=== PATIENT | female | born 1965 | race Caucasian/White ===

== ENCOUNTER 2023-11-19 07:58 | Outpatient (RCR) | payer BC, SELFPAY ==
[2023-10-29 08:49] VITALS: BP 121/64
[2023-10-29] MEDS: CALCIUM GLUCONATE 1028 GRAMS IV (08:51)
[2023-10-29] MEDS: CALCIUM GLUCONATE 1028 MG IV (08:51)
[2023-11-05 08:52] VITALS: BP 93/58
[2023-11-05] MEDS: CALCIUM GLUCONATE 1028 MG IV (08:58)
[2023-11-05] MEDS: CALCIUM GLUCONATE 1028 GRAMS IV (08:58)
[2023-11-12 08:30] VITALS: BP 95/54
[2023-11-12] MEDS: CALCIUM GLUCONATE 1028 GRAMS IV (08:45)
[2023-11-12] MEDS: CALCIUM GLUCONATE 1028 MG IV (08:45)
[2023-11-19 08:29] VITALS: BP 101/63
[2023-11-19] MEDS: CALCIUM GLUCONATE 1028 GRAMS IV (08:51)
[2023-11-19] MEDS: CALCIUM GLUCONATE 1028 MG IV (08:51)
== END 2023-11-20 11:23 | disposition home or self-care (01) ==
LOC: OID 07:58
PROVIDERS: ATTENDING PHYSICIAN Specialist; FAMILY PHYSICIAN Family Medicine
DX: E86.0 Dehydration (principal); N18.5 Chronic kidney disease, stage 5; E83.51 Hypocalcemia; D50.8 Other iron deficiency anemias; N18.30 Chronic kidney disease, stage 3 unspecified
CPT/HCPCS: 96365; 96366

== ENCOUNTER 2023-12-17 07:36 | Outpatient (RCR) | payer BC, SELFPAY ==
[2023-11-26 08:37] VITALS: BP 119/74
[2023-11-26] MEDS: CALCIUM GLUCONATE 1028 GRAMS IV (08:48)
[2023-11-26] MEDS: CALCIUM GLUCONATE 1028 MG IV (08:48)
[2023-12-03 08:34] VITALS: BP 102/59
[2023-12-03] MEDS: CALCIUM GLUCONATE 1028 GRAMS IV (08:48)
[2023-12-03] MEDS: CALCIUM GLUCONATE 1028 MG IV (08:48)
[2023-12-10 08:10] VITALS: BP 109/63
[2023-12-10] MEDS: CALCIUM GLUCONATE 1028 MG IV (08:20)
[2023-12-10] MEDS: CALCIUM GLUCONATE 1028 GRAMS IV (08:20)
[2023-12-17] MEDS: CALCIUM GLUCONATE 1028 GRAMS IV (08:16)
[2023-12-17] MEDS: CALCIUM GLUCONATE 1028 MG IV (08:16)
[2023-12-17 08:19] VITALS: BP 112/60
== END 2023-12-17 13:54 | disposition home or self-care (01) ==
LOC: OID 07:36
PROVIDERS: ATTENDING PHYSICIAN Specialist; FAMILY PHYSICIAN Family Medicine
DX: E86.0 Dehydration (principal); N18.5 Chronic kidney disease, stage 5; E83.51 Hypocalcemia; D50.8 Other iron deficiency anemias; N18.30 Chronic kidney disease, stage 3 unspecified
CPT/HCPCS: 96365; 96366

== ENCOUNTER 2024-01-07 08:14 | Outpatient (RCR) | payer BC, SELFPAY ==
[2023-12-24 08:38] VITALS: BP 120/64
[2023-12-24] MEDS: CALCIUM GLUCONATE 1028 MG IV (08:52)
[2023-12-24] MEDS: CALCIUM GLUCONATE 1028 GRAMS IV (08:52)
[2024-01-07 08:50] VITALS: BP 110/65
[2024-01-07] MEDS: CALCIUM GLUCONATE 1028 GRAMS IV (08:52)
[2024-01-07] MEDS: CALCIUM GLUCONATE 1028 MG IV (08:52)
== END 2024-01-16 13:15 | disposition home or self-care (01) ==
LOC: OID 08:14
PROVIDERS: ATTENDING PHYSICIAN Specialist; FAMILY PHYSICIAN Family Medicine
DX: N18.5 Chronic kidney disease, stage 5; E86.0 Dehydration; E83.51 Hypocalcemia; D50.8 Other iron deficiency anemias; E87.1 Hypo-osmolality and hyponatremia
CPT/HCPCS: 96365; 96366

== ENCOUNTER 2024-02-11 11:11 | Outpatient (RCR) | payer BC, SELFPAY ==
[2024-01-21 08:47] VITALS: BP 114/66
[2024-01-21] MEDS: CALCIUM GLUCONATE 1028 MG IV (08:50)
[2024-01-21] MEDS: CALCIUM GLUCONATE 1028 GRAMS IV (08:50)
[2024-02-04] MEDS: CALCIUM GLUCONATE 1046 MG IV (08:36)
[2024-02-04] MEDS: CALCIUM GLUCONATE 1046 GRAMS IV (08:36)
[2024-02-04 08:53] VITALS: BP 116/62
[2024-02-11 11:47] VITALS: BP 112/66
[2024-02-11] MEDS: CALCIUM GLUCONATE 1046 GRAMS IV (12:19)
[2024-02-11] MEDS: CALCIUM GLUCONATE 1046 MG IV (12:19)
== END 2024-02-18 09:30 | disposition home or self-care (01) ==
LOC: OID 11:11
PROVIDERS: ATTENDING PHYSICIAN Specialist; FAMILY PHYSICIAN Family Medicine
DX: N18.5 Chronic kidney disease, stage 5 (principal); E86.0 Dehydration; E83.51 Hypocalcemia; E87.1 Hypo-osmolality and hyponatremia; D50.8 Other iron deficiency anemias
CPT/HCPCS: 96365; 96366

== ENCOUNTER 2024-03-10 08:08 | Outpatient (RCR) | payer BC, SELFPAY ==
[2024-02-25 08:39] VITALS: BP 107/65
[2024-02-25] MEDS: CALCIUM GLUCONATE 1046 MG IV (08:52)
[2024-02-25] MEDS: CALCIUM GLUCONATE 1046 GRAMS IV (08:52)
[2024-03-10 08:30] VITALS: BP 107/59
[2024-03-10] MEDS: CALCIUM GLUCONATE 1046 MG IV (08:42)
[2024-03-10] MEDS: CALCIUM GLUCONATE 1046 GRAMS IV (08:42)
== END 2024-03-21 23:59 | disposition home or self-care (01) ==
LOC: OID 08:08
PROVIDERS: ATTENDING PHYSICIAN Specialist; FAMILY PHYSICIAN Family Medicine
DX: N18.5 Chronic kidney disease, stage 5 (principal); E86.0 Dehydration; E83.51 Hypocalcemia; D50.8 Other iron deficiency anemias; E87.1 Hypo-osmolality and hyponatremia
CPT/HCPCS: 96365; 96366

== ENCOUNTER 2024-04-14 10:11 | Emergency (ER) | payer BC, SELFPAY ==
[2024-04-14] VITALS (19 sets, daily range): BP systolic 92–122; BP diastolic 53–68
[2024-04-14 10:59] LABS: ALT (SGPT) 10 U/L (0-35); AST (SGOT) 26 U/L (14-36); Albumin 3.6 g/dl (3.5-5.0); Alkaline Phosphatase 92 U/L (38-126); Blood Urea Nitrogen 42 mg/dl (7-17); Calcium 8.1 mg/dl (8.4-10.2); Carbon Dioxide 34 mmol/L (22-30); Chloride 95 mmol/L (98-107); Glucose 107 mg/dl (70-99); Potassium 3.7 mmol/L (3.5-5.1); Sodium 136 mmol/L (135-145); Total Bilirubin 0.9 mg/dl (0.2-1.3); Total Protein 6.9 g/dl (6.3-8.2); eGFR 17.37
--- NOTE | 2024-04-14 11:07 | ED.GENMED ---
History of Present Illness
General
Chief Complaint: Abnormal Lab Value
Source: patient
Exam Limitations: none
Time Seen by Provider: 04/14/24 10:45
Nursing documentation reviewed up to this point in time: agreed with
History of Present Illness
History of Present Illness:
pt is a 58 y/o F with h/o crohns s/p ileostomy with internal pouch, malabsorptions, chrnoic anemia, electrolyte disturbances
here with hg of 5.3 on outpatient labs
she has had previous transfusions, but with caution after having hemolytic transfusion reaction and has had consequence of CKD since, with cr of 3-4
pt is scared to get transfused
she was sent here for transfusion and d/c home
she is sscheduled for iron infusion next week at [facility]
pt has fatigue but otherwise no sypmtoms, no bleeding, no dark stool, no vomiting, no cp, sob.
normal hg is 8
Past History
Past History
ED Past Medical History: Other (Crohn's disease, anemia, CKD, recurrent UTI)
ED Past Surgical History: Bowel resection and Other (Partial colectomy, ileostomy with internal pouch)
Social History
Tobacco: Non-smoker
Alcohol: None
Drug: None
Personal:
Living: with family
Employment: Employed
Family History
Family History: Other (Noncontributory)
Review of Systems
Review of Systems
Allergies reviewed?: Yes
All Other Systems: Not applicable
Phy Exam
Physical Exam
Physical Exam:
GENERAL: Alert , in no apparent distress, pale
EYE: pupils equal and reactive, pale
NECK: Supple
ENT: o/p clr, mmm.
CARDIAC: Regular rate and rhythm .no longer tachy
LUNGS: Clear breath sounds bilaterally, no acute respiratory distress, no wheezes/rales/rhonchi
ABDOMEN: Soft, without focal tenderness, no r/g, no cvat, normal bowel sounds
previous abd incisions, healed
NEUROLOGICAL: Alert and oriented, no focal neuro deficits
SKIN: Warm and dry, skin intact.
MUSCULOSKELETAL: No edema, well perfused. neg osiris's sign
PSYCH: Normal and appropriate interaction.
Course
Orders/Labs/Results
Orders:
Orders
04/14/24 10:19
Electrocardiogram (*1) Urgent
Reason for Study: Fatigue / Weakness
EKG- Treatment ONCE
04/14/24 10:28
Type+Screen Urgent
Complete Blood Count/With Diff Urgent
Comprehensive Metabolic Panel Urgent
04/14/24 11:30
* Blood Bank Products Urgent
Blood Bank Products: *Packed RBC Leuko(PRBC's)
Quantity: 2
Transfuse Today: Yes
Reason: Anemia
Patient will require pre-treatment for transfusion:: Yes
04/14/24 11:34
Acetaminophen [Tylenol] 650 mg PO NOW STA
Diphenhydramine [Benadryl] 25 mg IV NOW STA
04/14/24 17:49
Acetaminophen [Tylenol Suspension] 650 mg PO NOW STA
Abnormal Lab Results
04/14/24
10:28
RBC 2.71 L 10^6/uL
(4.20-5.40)
Hgb 5.3 L* g/dL
(12.0-16.0)
Hct 17.9 L* %
(37.0-47.0)
MCV 66.1 L fL
(81.0-99.0)
MCH 19.6 L pg
(27.0-31.0)
MCHC 29.6 L g/dL
(33.0-37.0)
RDW 16.2 H %
(11.5-14.5)
Plt Count 455 H 10^3/uL
(130-400)
Absolute Lymphs (auto) 0.9 L 10^3/uL
(1.2-3.4)
Absolute Monos (auto) 0.7 H 10^3/uL
(0.1-0.6)
Lymphocytes % 13.0 L %
(20.5-51.1)
Monocytes % 9.9 H %
(1.7-9.3)
Chloride 95 L mmol/L
(98-107)
Carbon Dioxide 34 H mmol/L
(22-30)
BUN 42 H mg/dl
(7-17)
Creatinine 3.0 H mg/dL
(0.6-1.0)
Glucose 107 H mg/dl
(70-99)
Calcium 8.1 L mg/dl
(8.4-10.2)
Antibody Screen Positive A
(Negative)
Crossmatch IS Only See Detail
MTS Gel Crossmatch See Detail
04/14/24 10:28
04/14/24 10:28
Vital Signs
Initial and Last Documented VS:
Initial Vital Signs
Temp Pulse Resp BP Pulse Ox
98.2 F 109 18 122/68 100
04/14/24 10:14 04/14/24 10:14 04/14/24 10:14 04/14/24 10:14 04/14/24 10:14
Last Documented Vital Signs
Temp Pulse Resp BP Pulse Ox
97.9 F 66 18 117/69 97
04/15/24 00:27 04/15/24 00:27 04/15/24 00:27 04/15/24 00:27 04/15/24 00:27
MDM/Problems Addressed
Differential Diagnosis Includes:
anemia
MDM/Problems Addressed:
58 y/o F with h/o malabsorption crohns and iron def causing anemia
here with outpatient labs saying hg is 5
pt is minimally symptomatic with fatigue
baseline hg is 8
no bleeding
sent here for blood transufion
unfortunately has had previous hemolytic transfusion reaction and subsequent kidney failure
not requiring dialysis
but pt hesitant about transfusion
she did consent
i spoke with dr. hyman regarding number of units, he recommended 2 and that pt be pretreated with tylenol/benadryl
pt had delay in blood that had to come from [facility] due to antibodies
will have her units and d/c home
*Critical Care Note
Total Time (30-74mins, 75-104mins- exclusive of procedures): Not Applicable
ED Attending Note
-
Portions of this chart may have been created with voice recognition software.� Occasional wrong word or��sound alike� substitutions may have occurred due to the inherent limitations of voice recognition software.
Discharge Plan
Departure
Patient Disposition: Home (Routine Discharge)
Patient with high blood pressure during this ER visit?: No
Condition: Good
Discharge Problem:
Anemia
Instructions: Anemia caused by low iron in adults - Discharge instructions
Prescriptions:
No Action
mirtazapine 15 MG tablet
30 mg PO HS
fluoxetine 20 mg Tablet
20 mg PO DAILY
loperamide [Imodium] 2 mg Capsule
2 mg PO DAILY
calcium carbonate [Tums] 200 mg calcium (500 mg) Tablet,Chewable
200 mg PO QID
vitamin D3-vitamin K2 (MK4) 1,000-100 unit-mcg Tablet
6,000 tab PO DAILY
Skyrizi 180 mg/1.2 mL (150 mg/mL) Wearable Injector
180 mg SC .[id number]
Referrals:
Francisca Gandara DO [Family Provider] -
Activity Restrictions/Additional Instructions:
You were given 2 units of blood today. Follow-up with your match up person next week as planned for your iron infusion. Return for any concerns
Interventions
Interventions:
*Risk Screen - Suicide Last Done: 04/14/24 12:15
*General Assessment Last Done: 04/14/24 12:15
*Neglect/Abuse Screening Last Done: 04/14/24 12:15
ED- Fall Risk Assessment Last Done: 04/14/24 21:45
*ED COVID-19 Vaccine History Last Done: 04/14/24 12:15
*Nursing Disposition Last Done: 04/15/24 00:34
Discharge Date and Time
Discharge Date/Time: 04/15/24 00:38
Print Language: HUNGARIAN
[2024-04-14 11:41] LABS: Red Blood Cell Count 2.71 10^6/uL (4.20-5.40)
[2024-04-14 11:42] LABS: Mean Corp Hgb Conc. 29.6 g/dL (33.0-37.0); Mean Corpuscular Hgb 19.6 pg (27.0-31.0)
[2024-04-14 11:43] LABS: Mean Corpuscular Volume 66.1 fL (81.0-99.0); Mean Platelet Volume 8.7 fL (7.4-10.4); Platelet Count 455 10^3/uL (130-400); Red Cell Dist. Width 16.2 % (11.5-14.5)
[2024-04-14 11:44] LABS: % Basophils 0.7 % (0-2); % Eosinophils 3.4 % (0-6); % Immature Granulocytes 0.4 % (0-0.5); % Monocytes 9.9 % (1.7-9.3); % Neutrophils 72.6 % (42.2-75.2)
[2024-04-14 11:45] LABS: Absolute Eosinophils 0.2 10^3/uL (0-0.7); Absolute Lymphocytes 0.9 10^3/uL (1.2-3.4); Absolute Monocytes 0.7 10^3/uL (0.1-0.6); Absolute Neutrophils 5.1 10^3/uL (1.4-6.5)
[2024-04-14 11:46] LABS: Absolute Basophils 0.1 10^3/uL (0-0.2)
[2024-04-14 11:47] LABS: Hemoglobin 5.3 g/dL (12.0-16.0); Nucleated Red Blood Cells % 0 %
[2024-04-14 11:48] LABS: Hematocrit 17.9 % (37.0-47.0)
[2024-04-14 13:26] LABS: Normal RBC Morphology No
[2024-04-14 13:27] LABS: Anisocytosis Slight; Macrocytosis Slight
[2024-04-14 13:29] LABS: Ovalocytes FEW; Target Cells FEW
[2024-04-14] MEDS: BENADRYL 25 MG IV (17:53)
[2024-04-14] MEDS: TYLENOL SUSPENSION 650 MG PO (17:54)
--- NOTE | 2024-04-14 21:30 | EDRN ---
This RN took over care for pt. When I took over care of pt, first unit of blood is done but has not been completed in [facility].
[2024-04-15] VITALS: BP 114/66
[2024-04-15 00:21] VITALS: BP 117/69
[2024-04-15 00:24] VITALS: BP 117/69
[2024-04-15 00:27] VITALS: BP 117/69
== END 2024-04-15 00:38 | disposition home or self-care (01) ==
LOC: EMR 10:11
PROVIDERS: Emergency Medicine; EMERGENCY PHYSICIAN Emergency Medicine; FAMILY PHYSICIAN Family Medicine
DX: D64.9 Anemia, unspecified (principal); K50.90 Crohn's disease, unspecified, without complications; N18.9 Chronic kidney disease, unspecified; Z87.440 Personal history of urinary (tract) infections; Z93.2 Ileostomy status
CPT/HCPCS: 99283; 96374; 80053; 85025; 86850; 86870; 86900; 86901; 86920; 86922; 93005; P9016

== ENCOUNTER 2024-04-21 08:18 | Outpatient (RCR) | payer BC, SELFPAY ==
[2024-03-29] MEDS: CALCIUM GLUCONATE 1046 GRAMS IV (08:17)
[2024-03-29] MEDS: CALCIUM GLUCONATE 1046 MG IV (08:17)
[2024-03-29 08:23] VITALS: BP 95/52
[2024-04-07 08:33] VITALS: BP 110/63
[2024-04-07] MEDS: CALCIUM GLUCONATE 1046 MG IV (08:49)
[2024-04-07] MEDS: CALCIUM GLUCONATE 1046 GRAMS IV (08:49)
[2024-04-21 08:44] VITALS: BP 132/70
[2024-04-21] MEDS: CALCIUM GLUCONATE 1046 MG IV (09:06)
[2024-04-21] MEDS: CALCIUM GLUCONATE 1046 GRAMS IV (09:06)
== END 2024-04-21 23:59 | disposition home or self-care (01) ==
LOC: OID 08:18
PROVIDERS: ATTENDING PHYSICIAN Specialist; FAMILY PHYSICIAN Family Medicine
DX: N18.5 Chronic kidney disease, stage 5 (principal); E86.0 Dehydration; E83.51 Hypocalcemia; D50.8 Other iron deficiency anemias; E87.1 Hypo-osmolality and hyponatremia
CPT/HCPCS: 96365; 96366

== ENCOUNTER 2024-05-19 08:23 | Outpatient (RCR) | payer BC, SELFPAY ==
[2024-05-06] MEDS: CALCIUM GLUCONATE 1046 GRAMS IV (09:05)
[2024-05-06] MEDS: CALCIUM GLUCONATE 1046 MG IV (09:05)
[2024-05-06 09:11] VITALS: BP 117/59
[2024-05-19 08:40] VITALS: BP 105/68
[2024-05-19] MEDS: CALCIUM GLUCONATE 1046 MG IV (08:54)
[2024-05-19] MEDS: CALCIUM GLUCONATE 1046 GRAMS IV (08:54)
== END 2024-05-20 09:56 | disposition home or self-care (01) ==
LOC: OID 08:23
PROVIDERS: ATTENDING PHYSICIAN Specialist; FAMILY PHYSICIAN Family Medicine
DX: N18.5 Chronic kidney disease, stage 5 (principal); E86.0 Dehydration; D63.1 Anemia in chronic kidney disease; D50.8 Other iron deficiency anemias; E83.51 Hypocalcemia; E87.1 Hypo-osmolality and hyponatremia
CPT/HCPCS: 96365; 96366

== ENCOUNTER 2024-06-16 07:59 | Outpatient (RCR) | payer BC, SELFPAY ==
[2024-06-16 08:13] VITALS: BP 122/78
[2024-06-16] MEDS: CALCIUM GLUCONATE 1046 GRAMS IV (08:26)
[2024-06-16] MEDS: CALCIUM GLUCONATE 1046 MG IV (08:26)
== END 2024-06-17 09:24 | disposition home or self-care (01) ==
LOC: OID 07:59
PROVIDERS: ATTENDING PHYSICIAN Specialist; FAMILY PHYSICIAN Family Medicine
DX: N18.5 Chronic kidney disease, stage 5 (principal); E86.0 Dehydration; E83.51 Hypocalcemia; D50.8 Other iron deficiency anemias; E87.1 Hypo-osmolality and hyponatremia
CPT/HCPCS: 96365; 96366

== ENCOUNTER 2024-07-07 08:01 | Outpatient (RCR) | payer BC, SELFPAY ==
[2024-07-07 08:49] VITALS: BP 118/60
[2024-07-07] MEDS: CALCIUM GLUCONATE 1046 MG IV (08:59)
[2024-07-07] MEDS: CALCIUM GLUCONATE 1046 GRAMS IV (08:59)
== END 2024-07-08 09:40 | disposition home or self-care (01) ==
LOC: OID 08:01
PROVIDERS: ATTENDING PHYSICIAN Specialist; FAMILY PHYSICIAN Family Medicine
DX: N18.5 Chronic kidney disease, stage 5 (principal); E86.0 Dehydration; E83.51 Hypocalcemia; D50.8 Other iron deficiency anemias; E87.1 Hypo-osmolality and hyponatremia
CPT/HCPCS: 96365; 96366

== ENCOUNTER 2024-08-18 07:43 | Outpatient (RCR) | payer BC, SELFPAY ==
[2024-07-28] MEDS: CALCIUM GLUCONATE 1046 MG IV (08:46)
[2024-07-28] MEDS: CALCIUM GLUCONATE 1046 GRAMS IV (08:46)
[2024-07-28 08:54] VITALS: BP 107/68
[2024-08-18] MEDS: CALCIUM GLUCONATE 1046 MG IV (08:09)
[2024-08-18] MEDS: CALCIUM GLUCONATE 1046 GRAMS IV (08:09)
[2024-08-18 08:16] VITALS: BP 108/66
[2024-08-18 11:14] VITALS: BP 103/60
== END 2024-08-20 08:12 | disposition home or self-care (01) ==
LOC: OID 07:43
PROVIDERS: ATTENDING PHYSICIAN Specialist; FAMILY PHYSICIAN Family Medicine
DX: N18.5 Chronic kidney disease, stage 5 (principal); E86.0 Dehydration; E83.51 Hypocalcemia; D50.8 Other iron deficiency anemias; E87.1 Hypo-osmolality and hyponatremia
CPT/HCPCS: 96365; 96366

== ENCOUNTER 2024-09-08 08:00 | Outpatient (RCR) | payer BC, SELFPAY ==
[2024-09-08] MEDS: CALCIUM GLUCONATE 1046 GRAMS IV (08:50)
[2024-09-08] MEDS: CALCIUM GLUCONATE 1046 MG IV (08:50)
[2024-09-08 08:58] VITALS: BP 116/65
== END 2024-09-09 11:14 | disposition home or self-care (01) ==
LOC: OID 08:00
PROVIDERS: ATTENDING PHYSICIAN Specialist; FAMILY PHYSICIAN Family Medicine
DX: N18.5 Chronic kidney disease, stage 5 (principal); E86.0 Dehydration; E83.51 Hypocalcemia; D50.8 Other iron deficiency anemias; E87.1 Hypo-osmolality and hyponatremia
CPT/HCPCS: 96365; 96366

== ENCOUNTER 2024-10-20 07:57 | Outpatient (RCR) | payer BC, SELFPAY ==
[2024-10-20] MEDS: CALCIUM GLUCONATE 1046 MG IV (08:27)
[2024-10-20] MEDS: CALCIUM GLUCONATE 1046 GRAMS IV (08:27)
[2024-10-20 08:37] VITALS: BP 116/58
== END 2024-10-22 23:59 | disposition home or self-care (01) ==
LOC: OID 07:57
PROVIDERS: ATTENDING PHYSICIAN Specialist; FAMILY PHYSICIAN Family Medicine
DX: N18.5 Chronic kidney disease, stage 5 (principal); E86.0 Dehydration; E83.51 Hypocalcemia; D50.8 Other iron deficiency anemias; E87.1 Hypo-osmolality and hyponatremia
CPT/HCPCS: 96365; 96366

== ENCOUNTER 2024-11-10 07:55 | Outpatient (RCR) | payer BC, SELFPAY ==
[2024-11-10 08:10] VITALS: BP 116/70
[2024-11-10] MEDS: CALCIUM GLUCONATE 1046 GRAMS IV (08:21)
[2024-11-10] MEDS: CALCIUM GLUCONATE 1046 MG IV (08:21)
== END 2024-11-11 10:44 | disposition home or self-care (01) ==
LOC: OID 07:55
PROVIDERS: ATTENDING PHYSICIAN Specialist; FAMILY PHYSICIAN Family Medicine
DX: N18.5 Chronic kidney disease, stage 5 (principal); E86.0 Dehydration; E83.51 Hypocalcemia; D50.8 Other iron deficiency anemias; E87.1 Hypo-osmolality and hyponatremia
CPT/HCPCS: 96365; 96366

== ENCOUNTER 2024-12-01 08:07 | Outpatient (RCR) | payer BC, SELFPAY ==
[2024-12-01 08:40] VITALS: BP 110/62
[2024-12-01] MEDS: CALCIUM GLUCONATE 1046 MG IV (08:55)
[2024-12-01] MEDS: CALCIUM GLUCONATE 1046 GRAMS IV (08:55)
== END 2024-12-02 10:25 | disposition home or self-care (01) ==
LOC: OID 08:07
PROVIDERS: ATTENDING PHYSICIAN Specialist; FAMILY PHYSICIAN Family Medicine
DX: N18.5 Chronic kidney disease, stage 5 (principal); E86.0 Dehydration; E83.51 Hypocalcemia; D50.8 Other iron deficiency anemias; E87.1 Hypo-osmolality and hyponatremia
CPT/HCPCS: 96365; 96366

== ENCOUNTER 2025-01-12 08:05 | Outpatient (RCR) | payer BC, SELFPAY ==
[2024-12-22 08:32] VITALS: BP 98/65
[2024-12-22] MEDS: CALCIUM GLUCONATE 1046 MG IV (08:47)
[2024-12-22] MEDS: CALCIUM GLUCONATE 1046 GRAMS IV (08:47)
[2025-01-12 08:40] VITALS: BP 105/62
[2025-01-12] MEDS: CALCIUM GLUCONATE 1046 GRAMS IV (09:11)
[2025-01-12] MEDS: CALCIUM GLUCONATE 1046 MG IV (09:11)
== END 2025-01-13 08:24 | disposition home or self-care (01) ==
LOC: OID 08:05
PROVIDERS: ATTENDING PHYSICIAN Specialist; FAMILY PHYSICIAN Family Medicine
DX: N18.5 Chronic kidney disease, stage 5 (principal); E86.0 Dehydration; E83.51 Hypocalcemia; D50.8 Other iron deficiency anemias; E87.1 Hypo-osmolality and hyponatremia
CPT/HCPCS: 96365; 96366

== ENCOUNTER 2025-02-02 08:07 | Outpatient (RCR) | payer BC, SELFPAY ==
[2025-02-02] MEDS: CALCIUM GLUCONATE 1046 MG IV (08:48)
[2025-02-02] MEDS: CALCIUM GLUCONATE 1046 GRAMS IV (08:48)
[2025-02-02 09:57] VITALS: BP 97/61
== END 2025-02-03 08:30 | disposition home or self-care (01) ==
LOC: OID 08:07
PROVIDERS: ATTENDING PHYSICIAN Specialist; FAMILY PHYSICIAN Family Medicine
DX: E86.0 Dehydration (principal); N18.5 Chronic kidney disease, stage 5; E83.51 Hypocalcemia; D50.8 Other iron deficiency anemias; E87.1 Hypo-osmolality and hyponatremia
CPT/HCPCS: 96365; 96366

== ENCOUNTER 2025-03-16 08:10 | Outpatient (RCR) | payer BC, SELFPAY ==
[2025-02-23 08:43] VITALS: BP 94/58
[2025-02-23] MEDS: CALCIUM GLUCONATE 1046 GRAMS IV (08:54)
[2025-02-23] MEDS: CALCIUM GLUCONATE 1046 MG IV (08:54)
[2025-03-16 08:47] VITALS: BP 94/55
[2025-03-16] MEDS: CALCIUM GLUCONATE 1046 MG IV (09:03)
[2025-03-16] MEDS: CALCIUM GLUCONATE 1046 GRAMS IV (09:03)
== END 2025-03-17 09:22 | disposition home or self-care (01) ==
LOC: OID 08:10
PROVIDERS: ATTENDING PHYSICIAN Specialist; FAMILY PHYSICIAN Family Medicine
DX: N18.5 Chronic kidney disease, stage 5 (principal); E86.0 Dehydration; E83.51 Hypocalcemia; D50.8 Other iron deficiency anemias; E87.1 Hypo-osmolality and hyponatremia
CPT/HCPCS: 96365; 96366

== ENCOUNTER 2025-04-06 08:18 | Outpatient (RCR) | payer BC, SELFPAY ==
[2025-04-06] MEDS: CALCIUM GLUCONATE 1046 MG IV (08:58)
[2025-04-06] MEDS: CALCIUM GLUCONATE 1046 GRAMS IV (08:58)
[2025-04-06 09:04] VITALS: BP 103/61
== END 2025-04-07 08:56 | disposition home or self-care (01) ==
LOC: OID 08:18
PROVIDERS: ATTENDING PHYSICIAN Specialist; FAMILY PHYSICIAN Family Medicine
DX: N18.5 Chronic kidney disease, stage 5 (principal); E86.0 Dehydration; E83.51 Hypocalcemia; D50.8 Other iron deficiency anemias; E87.1 Hypo-osmolality and hyponatremia
CPT/HCPCS: 96365; 96366

== ENCOUNTER 2025-05-18 07:56 | Outpatient (RCR) | payer BC, SELFPAY ==
[2025-04-27 08:36] VITALS: BP 95/59
[2025-04-27] MEDS: CALCIUM GLUCONATE 1046 MG IV (08:51)
[2025-04-27] MEDS: CALCIUM GLUCONATE 1046 GRAMS IV (08:51)
[2025-05-18 08:20] VITALS: BP 86/53
[2025-05-18] MEDS: CALCIUM GLUCONATE 1046 MG IV (08:30)
[2025-05-18] MEDS: CALCIUM GLUCONATE 1046 GRAMS IV (08:30)
[2025-05-18 10:45] VITALS: BP 92/50
== END 2025-05-19 08:38 | disposition home or self-care (01) ==
LOC: OID 07:56
PROVIDERS: ATTENDING PHYSICIAN Specialist; FAMILY PHYSICIAN Family Medicine
DX: N18.5 Chronic kidney disease, stage 5 (principal); E86.0 Dehydration; E83.51 Hypocalcemia; D50.8 Other iron deficiency anemias; E87.1 Hypo-osmolality and hyponatremia
CPT/HCPCS: 96365; 96366; 96367

== ENCOUNTER 2025-06-15 07:46 | Outpatient (RCR) | payer BC, SELFPAY ==
[2025-05-31 10:04] VITALS: BP 84/53
[2025-05-31] MEDS: CALCIUM GLUCONATE 1022 GRAMS IV (10:14)
[2025-05-31] MEDS: CALCIUM GLUCONATE 1022 MG IV (10:14)
[2025-06-08] MEDS: CALCIUM GLUCONATE 1022 MG IV (08:48)
[2025-06-08] MEDS: CALCIUM GLUCONATE 1022 GRAMS IV (08:48)
[2025-06-08 08:54] VITALS: BP 96/53
[2025-06-15 07:58] VITALS: BP 82/49
[2025-06-15] MEDS: CALCIUM GLUCONATE 1022 MG IV (08:10)
[2025-06-15] MEDS: CALCIUM GLUCONATE 1022 GRAMS IV (08:10)
== END 2025-06-16 08:21 | disposition home or self-care (01) ==
LOC: OID 07:46
PROVIDERS: ATTENDING PHYSICIAN Specialist; FAMILY PHYSICIAN Family Medicine
DX: N18.5 Chronic kidney disease, stage 5 (principal); E86.0 Dehydration; D50.8 Other iron deficiency anemias; E83.51 Hypocalcemia; E87.1 Hypo-osmolality and hyponatremia
CPT/HCPCS: 96365; 96366

== ENCOUNTER 2025-07-22 08:13 | Outpatient (RCR) | payer BC, SELFPAY ==
[2025-06-22] MEDS: CALCIUM GLUCONATE 1022 MG IV (08:03)
[2025-06-22] MEDS: CALCIUM GLUCONATE 1022 GRAMS IV (08:03)
[2025-06-22 08:09] VITALS: BP 86/49
[2025-06-22 08:13] LABS: Hematocrit 33.3 % (37.0-47.0); Hemoglobin 11.0 g/dL (12.0-16.0); Mean Corp Hgb Conc. 33.0 g/dL (33.0-37.0); Mean Corpuscular Volume 87.2 fL (81.0-99.0); Platelet Count 340 10^3/uL (130-400); Red Cell Dist. Width 12.9 % (11.5-14.5)
[2025-06-22 11:24] VITALS: BP 86/53
[2025-06-29 07:55] VITALS: BP 103/54
[2025-06-29] MEDS: CALCIUM GLUCONATE 1022 MG IV ×2 (08:05→11:06)
[2025-06-29] MEDS: CALCIUM GLUCONATE 1022 GRAMS IV ×2 (08:05→11:06)
[2025-07-06 07:50] VITALS: BP 81/60
[2025-07-06] MEDS: CALCIUM GLUCONATE 1022 GRAMS IV (08:02)
[2025-07-06] MEDS: CALCIUM GLUCONATE 1022 MG IV (08:02)
[2025-07-08 08:01] VITALS: BP 105/63
[2025-07-08] MEDS: CALCIUM GLUCONATE 1022 MG IV (08:19)
[2025-07-08] MEDS: CALCIUM GLUCONATE 1022 GRAMS IV (08:19)
[2025-07-08 09:58] LABS: Albumin 3.1 g/dl (3.5-5.0); Blood Urea Nitrogen 64 mg/dl (7-17); Calcium 8.0 mg/dl (8.4-10.2); Carbon Dioxide 19 mmol/L (22-30); Chloride 102 mmol/L (98-107); Glucose 92 mg/dl (70-99); Magnesium 1.8 mg/dl (1.6-2.3); Potassium 4.0 mmol/L (3.5-5.1); Sodium 132 mmol/L (135-145); eGFR 7.08
[2025-07-13 07:50] VITALS: BP 80/49
[2025-07-13] MEDS: CALCIUM GLUCONATE 1022 GRAMS IV (08:01)
[2025-07-13] MEDS: CALCIUM GLUCONATE 1022 MG IV (08:01)
[2025-07-15 08:08] VITALS: BP 90/54
[2025-07-15] MEDS: CALCIUM GLUCONATE 1022 GRAMS IV (08:10)
[2025-07-15] MEDS: CALCIUM GLUCONATE 1022 MG IV (08:10)
[2025-07-18 08:36] VITALS: BP 86/49
[2025-07-18] MEDS: CALCIUM GLUCONATE 1022 MG IV (08:50)
[2025-07-18] MEDS: CALCIUM GLUCONATE 1022 GRAMS IV (08:50)
[2025-07-18 12:10] VITALS: BP 86/48
[2025-07-20] MEDS: CALCIUM GLUCONATE 1022 GRAMS IV (08:05)
[2025-07-20] MEDS: CALCIUM GLUCONATE 1022 MG IV (08:05)
[2025-07-20 08:10] VITALS: BP 87/52
[2025-07-22] MEDS: CALCIUM GLUCONATE 1022 GRAMS IV (08:42)
[2025-07-22] MEDS: CALCIUM GLUCONATE 1022 MG IV (08:42)
[2025-07-22 08:44] VITALS: BP 89/49
[2025-07-22 11:45] VITALS: BP 91/48
== END 2025-07-22 14:17 | disposition home or self-care (01) ==
LOC: OID 08:13
PROVIDERS: Internal Medicine Hematology & Oncology; ATTENDING PHYSICIAN Specialist; FAMILY PHYSICIAN Family Medicine
DX: N18.5 Chronic kidney disease, stage 5 (principal); E86.0 Dehydration; E83.51 Hypocalcemia; D50.8 Other iron deficiency anemias; E87.1 Hypo-osmolality and hyponatremia
CPT/HCPCS: 36415; 80069; 82570; 83735; 84300; 85025; 96360; 96361; 96365; 96366

== ENCOUNTER 2025-08-19 07:38 | Outpatient (RCR) | payer BC, SELFPAY ==
[2025-07-25] MEDS: CALCIUM GLUCONATE 1022 GRAMS IV (08:34)
[2025-07-25] MEDS: CALCIUM GLUCONATE 1022 MG IV (08:34)
[2025-07-25 08:47] VITALS: BP 81/46
[2025-07-27 07:50] VITALS: BP 83/53
[2025-07-27] MEDS: CALCIUM GLUCONATE 1022 MG IV (08:07)
[2025-07-27] MEDS: CALCIUM GLUCONATE 1022 GRAMS IV (08:07)
[2025-07-27 08:20] LABS: Hematocrit 28.3 % (37.0-47.0); Hemoglobin 9.2 g/dL (12.0-16.0); Mean Corp Hgb Conc. 32.5 g/dL (33.0-37.0); Mean Corpuscular Volume 90.7 fL (81.0-99.0); Platelet Count 374 10^3/uL (130-400); Red Cell Dist. Width 15.0 % (11.5-14.5)
[2025-07-27 09:14] LABS: Iron 30 ug/dl (37-170)
[2025-07-27 09:18] LABS: C-Reactive Protein 29.40 mg/L (0.0-10.00)
[2025-07-27 09:23] LABS: Total Iron Binding Capacity 155 ug/dl (265-497)
[2025-07-27 09:54] LABS: Ferritin 78.5 ng/ml (11.1-264.0)
[2025-07-29] MEDS: CALCIUM GLUCONATE 1022 GRAMS IV (08:06)
[2025-07-29] MEDS: CALCIUM GLUCONATE 1022 MG IV (08:06)
[2025-07-29 08:11] VITALS: BP 93/49
[2025-08-01 08:50] VITALS: BP 91/56
[2025-08-01] MEDS: CALCIUM GLUCONATE 1022 MG IV (09:03)
[2025-08-01] MEDS: CALCIUM GLUCONATE 1022 GRAMS IV (09:03)
[2025-08-01 09:27] LABS: Iron 57 ug/dl (37-170)
[2025-08-01 09:37] LABS: Total Iron Binding Capacity 162 ug/dl (265-497)
[2025-08-01 09:53] LABS: C-Reactive Protein 20.30 mg/L (0.0-10.00)
[2025-08-01 10:45] LABS: Ferritin 66.5 ng/ml (11.1-264.0)
[2025-08-03 07:50] VITALS: BP 97/54
[2025-08-03] MEDS: CALCIUM GLUCONATE 1022 MG IV (08:03)
[2025-08-03] MEDS: CALCIUM GLUCONATE 1022 GRAMS IV (08:03)
[2025-08-05 08:15] VITALS: BP 86/46
[2025-08-05] MEDS: CALCIUM GLUCONATE 1022 MG IV (08:36)
[2025-08-05] MEDS: CALCIUM GLUCONATE 1022 GRAMS IV (08:36)
[2025-08-05 11:45] VITALS: BP 88/46
[2025-08-08] MEDS: CALCIUM GLUCONATE 1022 GRAMS IV (08:19)
[2025-08-08] MEDS: CALCIUM GLUCONATE 1022 MG IV (08:19)
[2025-08-08 08:24] VITALS: BP 94/57
[2025-08-10 08:45] VITALS: BP 128/88
[2025-08-10] MEDS: CALCIUM GLUCONATE 1022 MG IV (08:59)
[2025-08-10] MEDS: CALCIUM GLUCONATE 1022 GRAMS IV (08:59)
[2025-08-10] MEDS: RETACRIT 20000 UNITS SC (11:41)
[2025-08-12] MEDS: CALCIUM GLUCONATE 1022 MG IV (08:00)
[2025-08-12] MEDS: CALCIUM GLUCONATE 1022 GRAMS IV (08:00)
[2025-08-12 08:12] VITALS: BP 86/48
[2025-08-12 08:35] LABS: Albumin 3.1 g/dl (3.5-5.0); Blood Urea Nitrogen 47 mg/dl (7-17); Calcium 8.3 mg/dl (8.4-10.2); Carbon Dioxide 21 mmol/L (22-30); Chloride 104 mmol/L (98-107); Glucose 70 mg/dl (70-99); Magnesium 2.1 mg/dl (1.6-2.3); Potassium 3.6 mmol/L (3.5-5.1); Sodium 132 mmol/L (135-145); eGFR 9.07
--- NOTE | 2025-08-12 09:19 | PTCARENOTE ---
Critical value Creatinine level 5.[address] Thomas office. Previous value 6.3
[2025-08-15] MEDS: CALCIUM GLUCONATE 1022 GRAMS IV (08:16)
[2025-08-15] MEDS: CALCIUM GLUCONATE 1022 MG IV (08:16)
[2025-08-15 11:20] VITALS: BP 93/65
[2025-08-17 06:45] VITALS: BP 92/52
[2025-08-17] MEDS: CALCIUM GLUCONATE 1022 MG IV (08:06)
[2025-08-17] MEDS: CALCIUM GLUCONATE 1022 GRAMS IV (08:06)
[2025-08-19 07:45] VITALS: BP 101/62
[2025-08-19] MEDS: CALCIUM GLUCONATE 1022 GRAMS IV (08:06)
[2025-08-19] MEDS: CALCIUM GLUCONATE 1022 MG IV (08:06)
== END 2025-08-19 13:08 | disposition home or self-care (01) ==
LOC: OID 07:38
PROVIDERS: Student in an Organized Health Care Education/Training Program; ATTENDING PHYSICIAN Specialist; FAMILY PHYSICIAN Family Medicine
DX: N18.5 Chronic kidney disease, stage 5 (principal); E86.0 Dehydration; E85.0 Non-neuropathic heredofamilial amyloidosis; E83.51 Hypocalcemia; D50.8 Other iron deficiency anemias; E87.1 Hypo-osmolality and hyponatremia
CPT/HCPCS: 36415; 80069; 82728; 83540; 83550; 83735; 85025; 86140; 96361; 96365; 96366; 96372; Q5106

== ENCOUNTER 2025-09-21 07:35 | Outpatient (RCR) | payer BC, SELFPAY ==
[2025-08-22 07:45] VITALS: BP 102/55
[2025-08-22] MEDS: CALCIUM GLUCONATE 1022 MG IV (07:57)
[2025-08-22] MEDS: CALCIUM GLUCONATE 1022 GRAMS IV (07:57)
[2025-08-24 08:30] VITALS: BP 107/55
[2025-08-24 09:00] LABS: Hematocrit 34.8 % (37.0-47.0); Hemoglobin 10.7 g/dL (12.0-16.0)
[2025-08-24] MEDS: CALCIUM GLUCONATE 1022 GRAMS IV (09:00)
[2025-08-24] MEDS: CALCIUM GLUCONATE 1022 MG IV (09:00)
[2025-08-26] MEDS: CALCIUM GLUCONATE 1022 GRAMS IV (08:05)
[2025-08-26] MEDS: CALCIUM GLUCONATE 1022 MG IV (08:05)
[2025-08-26 08:12] VITALS: BP 88/68
[2025-08-29 07:58] VITALS: BP 101/59
[2025-08-29] MEDS: CALCIUM GLUCONATE 1022 GRAMS IV (08:08)
[2025-08-29] MEDS: CALCIUM GLUCONATE 1022 MG IV (08:08)
[2025-08-31 07:56] VITALS: BP 90/53
[2025-08-31] MEDS: CALCIUM GLUCONATE 1022 MG IV (08:07)
[2025-08-31] MEDS: CALCIUM GLUCONATE 1022 GRAMS IV (08:07)
[2025-09-02 07:48] VITALS: BP 92/55
[2025-09-02] MEDS: CALCIUM GLUCONATE 1022 GRAMS IV (08:10)
[2025-09-02] MEDS: CALCIUM GLUCONATE 1022 MG IV (08:10)
[2025-09-05 08:01] VITALS: BP 111/55
[2025-09-05] MEDS: CALCIUM GLUCONATE 1022 MG IV (08:07)
[2025-09-05] MEDS: CALCIUM GLUCONATE 1022 GRAMS IV (08:07)
[2025-09-07 08:01] VITALS: BP 100/57
[2025-09-07] MEDS: CALCIUM GLUCONATE 1022 GRAMS IV (08:10)
[2025-09-07] MEDS: CALCIUM GLUCONATE 1022 MG IV (08:10)
[2025-09-07 08:12] LABS: Hematocrit 29.2 % (37.0-47.0); Hemoglobin 9.4 g/dL (12.0-16.0)
[2025-09-07] MEDS: RETACRIT 20000 UNITS SC (11:18)
[2025-09-09 07:53] VITALS: BP 102/66
[2025-09-09] MEDS: CALCIUM GLUCONATE 1022 GRAMS IV (08:17)
[2025-09-09] MEDS: CALCIUM GLUCONATE 1022 MG IV (08:17)
[2025-09-09 09:22] LABS: Albumin 2.7 g/dl (3.5-5.0); Blood Urea Nitrogen 45 mg/dl (7-17); Calcium 7.7 mg/dl (8.4-10.2); Carbon Dioxide 17 mmol/L (22-30); Chloride 107 mmol/L (98-107); Glucose 64 mg/dl (70-99); Magnesium 1.9 mg/dl (1.6-2.3); Potassium 3.8 mmol/L (3.5-5.1); Sodium 133 mmol/L (135-145); eGFR 11.79
[2025-09-12 07:55] VITALS: BP 92/54
[2025-09-12] MEDS: CALCIUM GLUCONATE 1022 GRAMS IV (08:07)
[2025-09-12] MEDS: CALCIUM GLUCONATE 1022 MG IV (08:07)
[2025-09-14 07:45] VITALS: BP 93/55
[2025-09-14] MEDS: CALCIUM GLUCONATE 1022 MG IV (08:04)
[2025-09-14] MEDS: CALCIUM GLUCONATE 1022 GRAMS IV (08:04)
[2025-09-16] MEDS: CALCIUM GLUCONATE 1022 MG IV (08:09)
[2025-09-16] MEDS: CALCIUM GLUCONATE 1022 GRAMS IV (08:09)
[2025-09-16 08:14] VITALS: BP 96/58
[2025-09-19] MEDS: CALCIUM GLUCONATE 1022 MG IV (08:05)
[2025-09-19] MEDS: CALCIUM GLUCONATE 1022 GRAMS IV (08:05)
[2025-09-19 09:18] VITALS: BP 89/52
[2025-09-19 11:05] VITALS: BP 98/53
[2025-09-21 07:59] VITALS: BP 97/52
[2025-09-21] MEDS: CALCIUM GLUCONATE 1022 MG IV (08:03)
[2025-09-21] MEDS: CALCIUM GLUCONATE 1022 GRAMS IV (08:03)
[2025-09-21 08:50] LABS: Hematocrit 29.8 % (37.0-47.0); Hemoglobin 9.3 g/dL (12.0-16.0)
[2025-09-21] MEDS: RETACRIT 20000 UNITS SC (12:04)
== END 2025-09-21 23:59 | disposition home or self-care (01) ==
LOC: OID 07:35
PROVIDERS: ATTENDING PHYSICIAN Specialist; FAMILY PHYSICIAN Family Medicine
DX: N18.5 Chronic kidney disease, stage 5 (principal); E86.0 Dehydration; E83.51 Hypocalcemia; D50.8 Other iron deficiency anemias; E87.1 Hypo-osmolality and hyponatremia
CPT/HCPCS: 36415; 80069; 83735; 85014; 85018; 96365; 96366; 96372; Q5106